=== PATIENT | male | born 1980 | race Two or more races ===

== ENCOUNTER 2016-09-23 05:05 | Emergency (ER) | payer SELFPAY ==
[~2016-09-23] VITALS: Ht 167.6 cm; Wt 82.6 kg
[2016-09-23 07:30] LABS: Basophils # (auto) 0 uL; Basophils % (auto) 0.4 % (0.0-2.0); Eosinophils # (auto) 0.3 uL; Hematocrit 44.2 % (41.0-53.0); Mean Corpuscular Hemoglobin 30.7 pg (28.0-32.0); Mean Corpuscular Volume 90.2 fL (80.0-100.0); Monocytes # (auto) 0.4 uL; Monocytes % (auto) 6.1 % (0.0-12.0); Neutrophils # (auto) 3.1 uL; Neutrophils % (auto) 53.5 % (37.0-80.0); Platelet Count (auto) 241 10^3/uL (140-450); Red Cell Distribution Width 13.2 % (11.6-16.0); White Blood Cell 5.8 10^3/uL (4.4-10.8)
[2016-09-23 07:56] LABS: Albumin 4.1 g/dL (3.4-5.0); Bilirubin, Total 0.3 mg/dL (0.2-1.0); Calcium 8.9 mg/dL (8.5-10.1); Potassium 4.4 mmol/L (3.5-5.1); Total Protein 7.5 g/dL (6.4-8.2)
[2016-09-23 08:41] LABS: Urine RBC None Seen /hpf (0 - 3)
[2016-09-23 09:12] LABS: Urine Bilirubin Negative (Negative); Urine Blood Negative /uL (Negative); Urine Color Yellow (Yellow); Urine Glucose Normal (Normal); Urine Ketone Negative (Negative); Urine Mucus FEW (None Seen); Urine Nitrite Negative (Negative); Urine Squamous Epithelial Cell FEW /hpf (<5); Urine Urobilinogen Normal (Negative)
[2016-09-23] MEDS ORDERED: SODIUM CHLORIDE 0.9% 1,000 ML IV ONE (10:13)
[2016-09-23 12:01] VITALS: BP 125/65
== END 2016-09-23 12:07 | disposition home or self-care (01) ==
LOC: ER 05:08
DX: K52.9 Noninfective gastroenteritis and colitis, unspecified (principal)
CPT/HCPCS: 36415; 80053; 81001; 85025; 96360; 99284; J7030